=== PATIENT | female | born 2005 | race Asian ===

== ENCOUNTER 2025-03-28 17:47 | Emergency (ER) | payer BC, SELFPAY ==
[2025-03-28 17:48] VITALS: BP 147/85; PULSE 74; RESP 18; TEMP 36.8; O2SAT 98; BMI 24.0
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
[2025-03-28] MEDS: Fluorescein 1 MG STRIP 1 STRIP RIGHT EYE (18:16)
[2025-03-28] MEDS: Tetracaine 0.5% Ophthalmic Bottle 1 DRP RIGHT EYE (18:17)
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
--- NOTE | 2025-03-28 18:57 | ED.RN ---
VISUAL ACUITY COMPLETED, PT DID NOT HAVE HER CONTACTS IN FOLLOWING THE EYE INJURY. SHE STATES SHE CANNOT REALLY SEE GOOD AT ALL THIS NURSE ASKED IF THIS IS HER VISION BASELINE WITHOUT HER CONTACTS, AND PT STATES THAT IT IS.
[2025-03-28 18:58] VITALS: BP 122/74; PULSE 78; RESP 16; TEMP 36.3; O2SAT 99
== END 2025-03-28 19:08 | disposition home or self-care (01) ==
PROVIDERS: Emergency Provider Emergency Medicine; Visit Provider Emergency Medicine
DX: S05.91XA Unspecified injury of right eye and orbit, initial encounter (principal); W50.0XXA Accidental hit or strike by another person, initial encounter; Y93.74 Activity, frisbee
CPT/HCPCS: 99283